=== PATIENT | female | born 1925 | race Caucasian/White ===

== ENCOUNTER 2016-06-22 15:27 | Outpatient (CLI) | payer MEDICARE, OTHER ==
[2015-07-25 06:20] VITALS: BP 139/68
[2016-06-22 16:11] LABS: BASOPHILS % 0.4 (0.0-1.5); EOSINOPHILS % 6.2 % (0.0-6.8); LYMPHOCYTES # 1.6 # k/uL (0.6-4.0); MEAN CORPUSCULAR HEMOGLOBIN 31.5 pg (28.0-34.0); MONOCYTES # 0.3 # k/uL (0.0-0.9); MONOCYTES % 6.2 % (0.0-11.0); NEUTROPHILS # 2.4 # k/uL (1.4-7.7)
[2016-06-22 16:28] LABS: eGFR (African) 36; eGFR (Non-African) 30
--- NOTE | 2016-06-22 17:31 | Diagnostic Imaging Report ---
[facility] [address] [facility] [address] Report Submission Date: Jun 22, 2016 5:22:13 PM [employer] Patient Study Name: KACEY CHUNG Date: Jun 22, 2016 4:05:55 PM [employer] Modality Type: CR Gender: F Description: CHEST : [birth year] Institution: [facility] Physician: MARY MELGOZA MD Chest - two views Clinical history: Cough for a couple of months. Findings: Examination of the chest in [place] and lateral views with comparison to examination of 10/10/2015 demonstrates the lungs to be hyperinflated but clear. Cardiovascular and mediastinal silhouettes are stable. Aorta is atherosclerotic. Compression fractures are again seen in the lower thoracic spine status post vertebroplasty. Impression: 1. No significant change. 2. Emphysema. 3. Aortic atherosclerosis. 4. No active disease. Electronically signed on Jun 22, 2016 5:22:13 PM [employer] by: Neville HERNADEZ
== END 2016-06-22 15:30 ==
LOC: LAB 15:27
PROVIDERS: ATTEND Family Medicine
DX: I50.9 Heart failure, unspecified (principal)
CPT/HCPCS: 36415; 71020; 80053; 83880; 84443; 85025

== ENCOUNTER 2016-06-23 12:25 | Outpatient (CLI) | payer MEDICARE, OTHER ==
[2015-07-25 06:20] VITALS: BP 139/68
== END 2016-06-23 12:30 ==
LOC: CARD 12:25
PROVIDERS: ATTEND Internal Medicine Cardiovascular Disease
DX: I48.91 Unspecified atrial fibrillation (principal)
CPT/HCPCS: G0463